=== PATIENT | male | born 1960 | race Hispanic/Latino ===

== ENCOUNTER → 2020-05-30 | Outpatient (CLI) | payer MEDICAID ==
[~2020-05-30] VITALS: Ht 180.3 cm; Wt 93.9 kg
[~2020-05-30] MED LIST: ALBUMIN (HUMAN) 25% 200 ML IV SCH
[2020-05-30 09:03] LABS: INR 1.27 (0.85-1.15); PARTIAL THROMBOPLASTIN TIME 31.3 SEC (26.3-35.5); PROTHROMBIN TIME 13.6 SEC (9.6-11.6)
--- NOTE | 2020-05-30 10:40 | NUR ---
U/S GUIDED PARACENTESIS PROCEDURE PERFORMED BY DR. GEE____. PUNCTURE SITE _RLQ___ AND PATIENT TOLERATED PROCEDURE WELL. TOTAL REMOVED _8.7__ LITERS OF THAO CLEAR COLOR ASCITES FLUID END OF PROCEDURE AT _1020_CATHETER REMOVED AND DRESSING APPLIED. NO BLEEDING NOTED. ALBUMIN 25% 50 GRAMS GIVEN IV PER ALBUMIN PROTOCOL. PIV DCD FROM LEFT FOREARM BANDAID APPLIED, NO BLEEDING NOTED. DISCHARGE INSTRUCTION GIVEN TO PATIENT AND VERBALIZED UNDERSTANDING. DISCHARGED VIA W/C . AAO X 3 WITH NO C/O PAIN.
[2020-05-30 13:04] LABS: APPEARANCE BODY FLUID CLEAR (CLEAR); COLOR,BODY FLUID YELLOW (LT YELLOW); SPECIMENTYPE,BODY FLUID ASCITES; TOTAL VOLUME,BODY FLUID 8700 mL
[2020-05-30 13:05] LABS: BODY FLUID RBC 1237 /cu. mm.; BODY FLUID WBC 120 /cu. mm.
[2020-05-30 13:58] LABS: BF LYMPHOCYTE 38 %; BF MESOTHELIAL 33 %; BF MONOCYTE 28 %
== END | disposition home or self-care (01) ==
LOC: RAH 08:18
PROVIDERS: ATTEND Internal Medicine Gastroenterology
DX: R18.8 Other ascites (principal); F41.9 Anxiety disorder, unspecified; D69.6 Thrombocytopenia, unspecified
CPT/HCPCS: 36415; 49083; 85610; 85730; 87071; 87205; 89051; 96365; A4215; P9046

== ENCOUNTER → 2020-11-16 | Outpatient (CLI) | payer MEDICAID ==
[2020-11-16 09:06] LABS: INR 1.18 (0.85-1.15); PROTHROMBIN TIME 12.4 SEC (9.6-11.6)
[2020-11-16 09:07] LABS: PARTIAL THROMBOPLASTIN TIME 32.8 SEC (26.3-35.5)
[2020-11-16 13:34] LABS: APPEARANCE BODY FLUID SLIGHTLY CLOUDY (CLEAR); COLOR,BODY FLUID YELLOW (LT YELLOW); SPECIMENTYPE,BODY FLUID ASCITES; TOTAL VOLUME,BODY FLUID 15000 mL
[2020-11-16 13:37] LABS: BODY FLUID RBC 975 /cu. mm.; BODY FLUID WBC 62 /cu. mm.
[2020-11-16 13:41] LABS: BF LYMPHOCYTE 48 %; BF MONOCYTE 40 %
== END | disposition home or self-care (01) ==
LOC: RAH 07:35
PROVIDERS: ATTEND Family Medicine
DX: K70.31 Alcoholic cirrhosis of liver with ascites (principal)
CPT/HCPCS: 36415; 49083; 85610; 85730; 87071; 87077; 87186; 87205; 89051; 96374; A4215; P9046; 96365

== ENCOUNTER → 2020-11-23 | Outpatient (CLI) | payer MEDICAID ==
[2020-11-23 13:32] LABS: SPECIMENTYPE,BODY FLUID ASCITES
[2020-11-23 13:33] LABS: APPEARANCE BODY FLUID CLOUDY (CLEAR); BODY FLUID RBC 4975 /cu. mm.; BODY FLUID WBC 58 /cu. mm.; COLOR,BODY FLUID YELLOW (LT YELLOW); TOTAL VOLUME,BODY FLUID 15800 mL
[2020-11-23 13:54] LABS: BF LYMPHOCYTE 15 %; BF MESOTHELIAL 48 %; BF MONOCYTE 4 %
== END | disposition home or self-care (01) ==
LOC: RAH 09:52
PROVIDERS: ATTEND Family Medicine
DX: K70.31 Alcoholic cirrhosis of liver with ascites (principal); F41.1 Generalized anxiety disorder; M17.0 Bilateral primary osteoarthritis of knee; M89.49 Other hypertrophic osteoarthropathy, multiple sites; E66.9 Obesity, unspecified; K40.91 Unilateral inguinal hernia, without obstruction or gangrene, recurrent; M62.838 Other muscle spasm; R60.0 Localized edema; K42.9 Umbilical hernia without obstruction or gangrene; F17.200 Nicotine dependence, unspecified, uncomplicated; Z98.890 Other specified postprocedural states; Z88.1 Allergy status to other antibiotic agents; Z88.8 Allergy status to other drugs, medicaments and biological substances; Z72.89 Other problems related to lifestyle; Z68.34 Body mass index [BMI] 34.0-34.9, adult
CPT/HCPCS: 49083; 87071; 87205; 89051; A4215; P9046; 96365

== ENCOUNTER → 2020-11-30 | Outpatient (CLI) | payer MEDICAID ==
[~2020-11-30] MED LIST changes: +ALBUMIN (HUMAN) 25% 100 ML IV SCH
[2020-11-30 09:50] LABS: BASOPHILS % (AUTO) 0.1 % (0.0-5.0); EOSINOPHILS % (AUTO) 0.2 % (0.0-8.0); HEMATOCRIT 29.4 % (42-54); LYMPHOCYTES % (AUTO) 4.7 % (21.0-51.0); MEAN CORPUSCULAR HEMOGLOBIN 26.2 pg (27.0-33.0); MEAN CORPUSCULAR HGB CONC 32.3 g/dL (32.0-36.0); MONOCYTES % (AUTO) 11.5 % (3.0-13.0); NEUTROPHILS % (AUTO) 81.8 % (40.0-77.0); PLATELET COUNT (AUTO) 86 K/uL (130-400); RED BLOOD CELL COUNT(AUTO) 3.63 MIL/uL (4.50-6.20); RED CELL DISTRIBUTION WIDTH 19.8 % (11.0-15.5); WHITE BLOOD COUNT (AUTO) 9.5 K/uL (4.8-10.8)
[2020-11-30 10:05] LABS: INR 1.26 (0.85-1.15); PROTHROMBIN TIME 13.4 SEC (9.6-11.6)
[2020-11-30 10:10] LABS: ALBUMIN 2.1 g/dL (3.5-5.0); BILIRUBIN,TOTAL 4.2 mg/dL (0.2-1.0); CREATININE 1.2 mg/dL (0.5-1.5); TOTAL PROTEIN, SERUM 7.2 g/dL (6.0-8.3)
[2020-11-30 15:49] LABS: ALBUMIN,BODY FLUID 0.2 g/dL
[2020-11-30 16:16] LABS: APPEARANCE BODY FLUID CLOUDY (CLEAR); COLOR,BODY FLUID DARK YELLOW (LT YELLOW); SPECIMENTYPE,BODY FLUID ASCITES
[2020-11-30 16:17] LABS: TOTAL VOLUME,BODY FLUID 15500 mL
[2020-11-30 16:18] LABS: BODY FLUID RBC 2575 /cu. mm.; BODY FLUID WBC 614 /cu. mm.
[2020-11-30 16:52] LABS: BF LYMPHOCYTE 16 %; BF MONOCYTE 3 %
== END | disposition home or self-care (01) ==
LOC: RAH 08:49
PROVIDERS: ATTEND Internal Medicine Gastroenterology
DX: K70.31 Alcoholic cirrhosis of liver with ascites (principal); F41.1 Generalized anxiety disorder; M17.0 Bilateral primary osteoarthritis of knee; M89.49 Other hypertrophic osteoarthropathy, multiple sites; E66.9 Obesity, unspecified; K40.91 Unilateral inguinal hernia, without obstruction or gangrene, recurrent; M62.838 Other muscle spasm; R60.0 Localized edema; K42.9 Umbilical hernia without obstruction or gangrene; F17.200 Nicotine dependence, unspecified, uncomplicated; Z98.890 Other specified postprocedural states; Z79.01 Long term (current) use of anticoagulants; Z88.1 Allergy status to other antibiotic agents; Z88.8 Allergy status to other drugs, medicaments and biological substances; Z72.89 Other problems related to lifestyle; Z68.34 Body mass index [BMI] 34.0-34.9, adult; Z79.899 Other long term (current) drug therapy
CPT/HCPCS: 36415; 49083; 76700; 80053; 82042; 84157; 85025; 85610; 87071; 87077; 87186; 87205; 88112; 88305; 89051; 93975; 96365; P9046

== ENCOUNTER 2020-12-02 22:25 | Inpatient (IN) | payer MEDICAID ==
[~2020-12-02] VITALS: Ht 180.3 cm; Wt 80.6 kg
[2020-12-02] MEDS ORDERED: ALBUTEROL INHALER 90MCG/INH IH ONE (22:37)
[2020-12-02] MEDS ORDERED: ONDANSETRON HCL 4 MG/2 ML VIAL ONE (22:37)
[2020-12-02 22:41] LABS: BASOPHILS % (AUTO) 0.3 % (0.0-5.0); EOSINOPHILS % (AUTO) 0.1 % (0.0-8.0); HEMATOCRIT 35.4 % (42-54); LYMPHOCYTES % (AUTO) 3.9 % (21.0-51.0); MEAN CORPUSCULAR HEMOGLOBIN 26.3 pg (27.0-33.0); MEAN CORPUSCULAR HGB CONC 33.3 g/dL (32.0-36.0); MEAN CORPUSCULAR VOLUME 78.8 fL (79-99); MONOCYTES % (AUTO) 7.6 % (3.0-13.0); PLATELET COUNT (AUTO) 168 K/uL (130-400); RED BLOOD CELL COUNT(AUTO) 4.49 MIL/uL (4.50-6.20); RED CELL DISTRIBUTION WIDTH 19.9 % (11.0-15.5)
[2020-12-02 22:56] LABS: CREATININE 2.9 mg/dL (0.5-1.5); POTASSIUM 3.8 mmol/L (3.5-5.1)
[2020-12-02 23:04] LABS: INR 1.4 (0.85-1.15); PROTHROMBIN TIME 14.8 SEC (9.6-11.6)
[2020-12-02 23:05] LABS: PARTIAL THROMBOPLASTIN TIME 36.9 SEC (26.3-35.5)
[2020-12-02 23:08] LABS: B-TYPE NATRIURETIC PEPTIDE 178 pg/mL (0-100)
[2020-12-02] MEDS ORDERED: FENTANYL CITRATE PF 50 MCG/1 ML 2ML VIAL ONE (23:08)
[2020-12-02 23:10] LABS: ALBUMIN 2.5 g/dL (3.5-5.0); BILIRUBIN,TOTAL 6.9 mg/dL (0.2-1.0); MAGNESIUM 2.8 mg/dL (1.80-2.40); TOTAL PROTEIN, SERUM 7.7 g/dL (6.0-8.3)
[2020-12-02] MEDS ORDERED: HYDROMORPHONE 1 MG/1 ML AMP ONE (23:40)
[2020-12-03] VITALS (8 sets, daily range): BP systolic 94–120; BP diastolic 35–68
[2020-12-03] MEDS ORDERED: FAMOTIDINE/PF 20 MG/2 ML VIAL IV ONE (00:09)
[2020-12-03] MEDS ORDERED: SODIUM CHLORIDE 0.9% 1000ML 1,000 ML IV ONE ×2 (00:11→03:15)
[2020-12-03] MEDS ORDERED: ONDANSETRON HCL 4 MG/2 ML VIAL IV PRN (00:30)
[2020-12-03] MEDS ORDERED: HYDROMORPHONE 1 MG/1 ML AMP IV PRN (00:30)
[2020-12-03] MEDS ORDERED: ZOLPIDEM TARTRATE 5 MG TAB PO PRN (00:30)
[2020-12-03] MEDS ORDERED: SODIUM CHLORIDE 0.9% 1000ML 1,000 ML IV SCH (00:30)
[2020-12-03] MEDS ORDERED: ACETAMINOPHEN 325 MG TAB PO PRN (00:30)
[2020-12-03] MEDS ORDERED: LACTULOSE 20 GM/30 ML UDCUP PO PRN (00:30)
[2020-12-03 01:00] LABS: APPEARANCE,URINE Turbid (CLEAR); BILIRUBIN,URINE Moderate (NEGATIVE); COLOR,URINE Dark Yellow (YELLOW); GLUCOSE, URINE (UA) Negative (NEGATIVE); KETONES,URINE Trace mg/dL (NEGATIVE); LEUKOCYTE ESTERASE ,URINE Small (NEGATIVE); NITRATE,URINE Negative (NEGATIVE); OCCULT BLOOD,URINE Large (NEGATIVE); PROTEIN,URINE POS 1+ mg/dL (NEGATIVE)
[2020-12-03 01:08] LABS: AMPHET/METH SCREEN,URINE NEGATIVE (NEGATIVE); BACTERIA,URINE Few /HPF (None Seen); BARBITURATE SCREEN, URINE NEGATIVE (NEGATIVE); BENZODIAZEPINES SCREEN,URINE NEGATIVE (NEGATIVE); CALCIUM OXALATE CRYSTALS,UR Moderate /LPF (None Seen); CANNABINOID SCREEN,URINE POSITIVE (NEGATIVE); COCAINE SCREEN,URINE NEGATIVE (NEGATIVE); MUCUS,URINE Many LPF (None Seen); OPIATE SCREEN,URINE POSITIVE (NEGATIVE); PHENCYCLIDINE SCREEN,URINE NEGATIVE (NEGATIVE); SQUAMOUS EPITHELIAL CELL,UR Moderate /HPF (0-2); WBC,URINE 0-1 /HPF (0-1)
[2020-12-03] MEDS ORDERED: HYDROMORPHONE HCL 0.5 MG/0.5 ML ML ONE (03:15)
[2020-12-03] MEDS ORDERED: KETOROLAC TROMETHAMINE 15MG/ML ONE (03:53)
[2020-12-03] MEDS ORDERED: PHARMACY COMMUNICATION MISC SCH ×3 (04:15→18:00)
[2020-12-03] MEDS ORDERED: VANCOMYCIN 1GM+NS 250ML 250 ML IV SCH (04:15)
[2020-12-03] MEDS ORDERED: VANCOMYCIN 1GM+NS 250ML 250 ML IV ONE (04:36)
[2020-12-03] MEDS ORDERED: VANCOMYCIN PROTOCOL PER PHARMACY IV SCH (06:30)
[2020-12-03] MEDS: INSULIN HUMULIN R 100 UNIT/ML 3ML SQ SCH ×4 (07:30→21:00)
[2020-12-03] MEDS ORDERED: DEXTROSE 50%-WATER 50 ML DISP.SYRIN IV ONE ×2 (07:51→18:16)
[2020-12-03] MEDS ORDERED: ONDANSETRON HCL 4 MG/2 ML VIAL ONE (07:56)
[2020-12-03] MEDS ORDERED: PANTOPRAZOLE SODIUM 40 MG TABLET.DR PO SCH (09:00)
[2020-12-03] MEDS ORDERED: FAMOTIDINE 20MG TAB 20 MG TAB PO SCH (09:00)
[2020-12-03] MEDS: M.V.I. IV [ADULT] 10 ML, FOLIC ACID 1 MG, THIAMINE HCL 100 MG in SODIUM CHLORIDE 0.9% 1... IV SCH (09:00)
[2020-12-03 09:14] LABS: HEMATOCRIT 38.3 % (42-54); MEAN CORPUSCULAR HEMOGLOBIN 25.7 pg (27.0-33.0); MEAN CORPUSCULAR HGB CONC 32.1 g/dL (32.0-36.0); MEAN CORPUSCULAR VOLUME 80.1 fL (79-99); RED BLOOD CELL COUNT(AUTO) 4.78 MIL/uL (4.50-6.20); RED CELL DISTRIBUTION WIDTH 20.1 % (11.0-15.5); WHITE BLOOD COUNT (AUTO) 15.5 K/uL (4.8-10.8)
[2020-12-03 09:57] LABS: POTASSIUM 3.8 mmol/L (3.5-5.1)
[2020-12-03] MEDS ORDERED: ALBUMIN (HUMAN) 5% 500 ML IV ONE ×2 (10:03→10:05)
[2020-12-03] MEDS ORDERED: SUCCINYLCHOLINE CHLORIDE 20 MG/ML 10 ML VIAL ONE (10:19)
[2020-12-03] MEDS ORDERED: ROCURONIUM 10MG/1ML SYR 10 MG/ML ML ONE ×2 (10:19→11:14)
[2020-12-03] MEDS ORDERED: KETAMINE 50MG/ML SYRINGE 50 MG/ML DISP.SYRIN IV ONE (10:19)
[2020-12-03] MEDS ORDERED: FENTANYL CITRATE PF 50 MCG/1 ML 2ML VIAL ONE (10:19)
[2020-12-03] MEDS ORDERED: NOREPINEPHRINE BITARTRATE 1 MG/1 ML ML IV ONE (10:21)
[2020-12-03] MEDS ORDERED: GLYCOPYRROLATE 1 MG/5 ML SYRINGE ONE (10:24)
[2020-12-03] MEDS ORDERED: MORPHINE SULFATE 4 MG/1ML SYG IV PRN (10:30)
[2020-12-03] MEDS: LEVOFLOXACIN 500 MG/D5W 100 ML 100 ML IV SCH (10:30)
[2020-12-03] MEDS: SODIUM CHLORIDE 0.9% 1000ML 1,000 ML IV SCH ×2 (10:30→23:50)
[2020-12-03] MEDS ORDERED: ONDANSETRON HCL 4 MG/2 ML VIAL IVP PRN (10:30)
[2020-12-03] MEDS ORDERED: NEOSTIGMINE 5MG/5ML SYR IV ONE (11:14)
[2020-12-03] MEDS ORDERED: SUGAMMADEX SODIUM 200 MG/2 ML VIAL IV ONE (11:37)
[2020-12-03 14:00] LABS: CHLORIDE,URINE RANDOM 49 mmol/L (110-250); POTASSIUM,URINE RANDOM 51 mmol/L (25-125); SODIUM,URINE RANDOM < 15 mmol/l (40-220)
[2020-12-03] MEDS: ALBUMIN (HUMAN) 25% 100 ML IV SCH ×2 (14:00→22:21)
[2020-12-03] MEDS ORDERED: ALBUMIN (HUMAN) 25% 100 ML IV ONE ×2 (15:55→17:30)
[2020-12-03] MEDS ORDERED: COMPOUND IV REFRIGERATED 1 EACH IVSOLN MISC PRN (17:15)
[2020-12-03] MEDS ORDERED: NOREPINEPHRINE 4MG/NS 250ML 250 ML IV ONE (17:31)
[2020-12-03] MEDS ORDERED: ALBUMIN (HUMAN) 5% 250 ML IV SCH (17:45)
[2020-12-03] MEDS ORDERED: SODIUM BICARB 50MEQ 50ML VIAL 100 ML ONE (17:52)
[2020-12-03] MEDS ORDERED: SODIUM BICARB 50MEQ 50ML VIAL IV SCH (18:00)
[2020-12-03] MEDS ORDERED: SODIUM BICARB 8.4% 50ML SYRING 150 MEQ in DEXTROSE 5%-WATER 1,000 ML IVP SCH (18:00)
[2020-12-03] MEDS ORDERED: SODIUM CHLORIDE 0.9% 500ML 500 ML IV SCH (18:00)
[2020-12-03] MEDS: DEXTROSE 50%-WATER 50 ML DISP.SYRIN IV SCH ×2 (18:30→19:30)
[2020-12-03] MEDS: FAMOTIDINE/PF 20 MG/2 ML VIAL IV SCH (21:51)
[2020-12-04] VITALS (24 sets, daily range): BP systolic 90–122; BP diastolic 37–78
[2020-12-04] MEDS ORDERED: DEXTROSE 50%-WATER 50 ML DISP.SYRIN IV ONE (06:09)
[2020-12-04] MEDS: ALBUMIN (HUMAN) 25% 100 ML IV SCH ×3 (06:37→21:01)
[2020-12-04 07:05] LABS: ALBUMIN 2.3 g/dL (3.5-5.0); BILIRUBIN,TOTAL 5.6 mg/dL (0.2-1.0); CREATININE 3.8 mg/dL (0.5-1.5); POTASSIUM 4.6 mmol/L (3.5-5.1); THYROID STIMULATING HORMONE 2.59 uIU/mL (0.36-3.74); TOTAL PROTEIN, SERUM 4.7 g/dL (6.0-8.3)
[2020-12-04] MEDS: INSULIN HUMULIN R 100 UNIT/ML 3ML SQ SCH ×4 (07:09→20:53)
[2020-12-04] MEDS ORDERED: DEXTROSE 50%-WATER 50 ML DISP.SYRIN IV PRN (07:15)
[2020-12-04] MEDS ORDERED: DEXTROSE 10%-WATER 1,000 ML IV SCH (07:15)
[2020-12-04 07:38] LABS: BASOPHILS % (AUTO) 0.1 % (0.0-5.0); EOSINOPHILS % (AUTO) 3.8 % (0.0-8.0); HEMATOCRIT 22.6 % (42-54); LYMPHOCYTES % (AUTO) 4.9 % (21.0-51.0); MEAN CORPUSCULAR HEMOGLOBIN 26.3 pg (27.0-33.0); MEAN CORPUSCULAR HGB CONC 32.3 g/dL (32.0-36.0); MEAN CORPUSCULAR VOLUME 81.3 fL (79-99); NEUTROPHILS % (AUTO) 84.4 % (40.0-77.0); PLATELET COUNT (AUTO) 37 K/uL (130-400); RED BLOOD CELL COUNT(AUTO) 2.78 MIL/uL (4.50-6.20); RED CELL DISTRIBUTION WIDTH 20.2 % (11.0-15.5); WHITE BLOOD COUNT (AUTO) 7.3 K/uL (4.8-10.8)
[2020-12-04] MEDS ORDERED: NOREPINEPHRINE 4MG/NS 250ML 250 ML IV SCH (08:15)
[2020-12-04] MEDS: M.V.I. IV [ADULT] 10 ML, FOLIC ACID 1 MG, THIAMINE HCL 100 MG in SODIUM CHLORIDE 0.9% 1... IV SCH (09:00)
[2020-12-04] MEDS: LEVOFLOXACIN 500 MG/D5W 100 ML 100 ML IV SCH (10:05)
[2020-12-04] MEDS: VANCOMYCIN 1.25 GM in SODIUM CHLORIDE 0.9% 250 ML IV SCH (10:15)
[2020-12-04] MEDS: FAMOTIDINE/PF 20 MG/2 ML VIAL IV SCH ×2 (10:18→20:56)
[2020-12-04] MEDS: THIAMINE HCL 100 MG/ML 2ML VIAL IVP SCH (10:19)
[2020-12-04] MEDS ORDERED: SODIUM BICARB 50MEQ 50ML VIAL IV ONE (15:00)
[2020-12-04] MEDS ORDERED: SODIUM BICARB 8.4% 50ML SYRING 150 MEQ in DEXTROSE 5%-WATER 1,000 ML IVP SCH (15:00)
[2020-12-04] MEDS: OCTREOTIDE ACETATE 100 MCG/ML AMP SQ SCH (20:57)
[2020-12-05] VITALS (24 sets, daily range): BP systolic 80–153; BP diastolic 38–88
[2020-12-05 05:47] LABS: BASOPHILS % (AUTO) 0.1 % (0.0-5.0); LYMPHOCYTES % (AUTO) 4.3 % (21.0-51.0); MEAN CORPUSCULAR HEMOGLOBIN 25.6 pg (27.0-33.0); MEAN CORPUSCULAR HGB CONC 32.4 g/dL (32.0-36.0); MONOCYTES % (AUTO) 7.7 % (3.0-13.0); NEUTROPHILS % (AUTO) 86.7 % (40.0-77.0); PLATELET COUNT (AUTO) 34 K/uL (130-400); RED BLOOD CELL COUNT(AUTO) 2.62 MIL/uL (4.50-6.20); RED CELL DISTRIBUTION WIDTH 20.7 % (11.0-15.5); WHITE BLOOD COUNT (AUTO) 8.5 K/uL (4.8-10.8)
[2020-12-05 06:03] LABS: MAGNESIUM 1.8 mg/dL (1.80-2.40); PHOSPHORUS 6.8 mg/dL (2.5-4.9); POTASSIUM 4.6 mmol/L (3.5-5.1)
[2020-12-05 06:12] LABS: HEMATOCRIT 20.7 % (42-54)
[2020-12-05] MEDS: ALBUMIN (HUMAN) 25% 100 ML IV SCH ×2 (06:22→14:39)
[2020-12-05] MEDS: INSULIN HUMULIN R 100 UNIT/ML 3ML SQ SCH ×4 (06:23→21:00)
[2020-12-05] MEDS: FAMOTIDINE/PF 20 MG/2 ML VIAL IV SCH ×2 (10:09→22:03)
[2020-12-05] MEDS: OCTREOTIDE ACETATE 100 MCG/ML AMP SQ SCH ×2 (10:10→22:03)
[2020-12-05] MEDS: THIAMINE HCL 100 MG/ML 2ML VIAL IVP SCH (10:10)
[2020-12-05] MEDS: LEVOFLOXACIN 500 MG/D5W 100 ML 100 ML IV SCH (10:10)
[2020-12-05] MEDS: VANCOMYCIN 1.25 GM in SODIUM CHLORIDE 0.9% 250 ML IV SCH (10:11)
[2020-12-05] MEDS: M.V.I. IV [ADULT] 10 ML, FOLIC ACID 1 MG, THIAMINE HCL 100 MG in SODIUM CHLORIDE 0.9% 1... IV SCH (11:15)
[2020-12-06] VITALS (25 sets, daily range): BP systolic 106–154; BP diastolic 45–75
[2020-12-06] MEDS ORDERED: ADENOSINE 3 MG/ML 2ML VIAL IV ONE (03:21)
[2020-12-06 04:50] LABS: BASOPHILS % (AUTO) 0.3 % (0.0-5.0); EOSINOPHILS % (AUTO) 0.1 % (0.0-8.0); HEMATOCRIT 23.5 % (42-54); LYMPHOCYTES % (AUTO) 3.4 % (21.0-51.0); MEAN CORPUSCULAR HEMOGLOBIN 26.4 pg (27.0-33.0); MEAN CORPUSCULAR HGB CONC 33.2 g/dL (32.0-36.0); MEAN CORPUSCULAR VOLUME 79.7 fL (79-99); MONOCYTES % (AUTO) 9.4 % (3.0-13.0); NUCLEATED RED BLOOD CELLS 0.2 % (0.0-0.19); PLATELET COUNT (AUTO) 25 K/uL (130-400); RED BLOOD CELL COUNT(AUTO) 2.95 MIL/uL (4.50-6.20); RED CELL DISTRIBUTION WIDTH 19.9 % (11.0-15.5); WHITE BLOOD COUNT (AUTO) 9.5 K/uL (4.8-10.8)
[2020-12-06 05:08] LABS: ALBUMIN 2.9 g/dL (3.5-5.0); BILIRUBIN,TOTAL 7.8 mg/dL (0.2-1.0); CREATININE 3.6 mg/dL (0.5-1.5); TOTAL PROTEIN, SERUM 5.3 g/dL (6.0-8.3)
[2020-12-06] MEDS: INSULIN HUMULIN R 100 UNIT/ML 3ML SQ SCH ×4 (06:31→21:00)
[2020-12-06] MEDS ORDERED: PHARMACY COMMUNICATION MISC PRN (07:15)
[2020-12-06] MEDS ORDERED: ONDANSETRON HCL 4 MG/2 ML VIAL IV PRN (07:15)
[2020-12-06] MEDS: LORAZEPAM 2 MG/ML 1 ML VIAL IVP PRN ×3 (07:41→22:48)
[2020-12-06] MEDS: THIAMINE HCL 100 MG/ML 2ML VIAL IVP SCH ×2 (09:13→20:18)
[2020-12-06] MEDS: FAMOTIDINE/PF 20 MG/2 ML VIAL IV SCH ×2 (09:13→20:19)
[2020-12-06] MEDS: VANCOMYCIN 1.25 GM in SODIUM CHLORIDE 0.9% 250 ML IV SCH (09:14)
[2020-12-06] MEDS: OCTREOTIDE ACETATE 100 MCG/ML AMP SQ SCH ×2 (09:14→20:20)
[2020-12-06] MEDS: LEVOFLOXACIN 500 MG/D5W 100 ML 100 ML IV SCH (09:15)
[2020-12-06] MEDS: M.V.I. IV [ADULT] 10 ML, FOLIC ACID 1 MG, THIAMINE HCL 100 MG in SODIUM CHLORIDE 0.9% 1... IV SCH (10:21)
[2020-12-06] MEDS: DEXTROSE 5 %-0.45 % NACL 1,000 ML IV SCH (17:52)
[2020-12-07] VITALS (24 sets, daily range): BP systolic 83–160; BP diastolic 49–90
[2020-12-07 05:22] LABS: BASOPHILS % (AUTO) 0.2 % (0.0-5.0); EOSINOPHILS % (AUTO) 0.1 % (0.0-8.0); LYMPHOCYTES % (AUTO) 4.1 % (21.0-51.0); MEAN CORPUSCULAR HEMOGLOBIN 26.5 pg (27.0-33.0); MEAN CORPUSCULAR HGB CONC 32.9 g/dL (32.0-36.0); MEAN CORPUSCULAR VOLUME 80.5 fL (79-99); MONOCYTES % (AUTO) 9.3 % (3.0-13.0); NEUTROPHILS % (AUTO) 85.2 % (40.0-77.0); PLATELET COUNT (AUTO) 23 K/uL (130-400); RED BLOOD CELL COUNT(AUTO) 2.98 MIL/uL (4.50-6.20); RED CELL DISTRIBUTION WIDTH 20.3 % (11.0-15.5); WHITE BLOOD COUNT (AUTO) 10.4 K/uL (4.8-10.8)
[2020-12-07] MEDS: INSULIN HUMULIN R 100 UNIT/ML 3ML SQ SCH ×4 (05:34→16:30)
[2020-12-07 05:37] LABS: CREATININE 3.3 mg/dL (0.5-1.5); POTASSIUM 3.8 mmol/L (3.5-5.1)
[2020-12-07 06:01] LABS: % IRON SATURATION 17.9 % (30-44)
[2020-12-07] MEDS: FAMOTIDINE/PF 20 MG/2 ML VIAL IV SCH ×2 (09:05→22:01)
[2020-12-07] MEDS: DEXTROSE 5 %-0.45 % NACL 1,000 ML IV SCH (09:07)
[2020-12-07] MEDS: LEVOFLOXACIN 500 MG/D5W 100 ML 100 ML IV SCH (09:07)
[2020-12-07] MEDS: THIAMINE HCL 100 MG/ML 2ML VIAL IVP SCH ×2 (09:07→22:05)
[2020-12-07] MEDS: M.V.I. IV [ADULT] 10 ML, FOLIC ACID 1 MG, THIAMINE HCL 100 MG in SODIUM CHLORIDE 0.9% 1... IV SCH (11:17)
[2020-12-07] MEDS ORDERED: DIAZEPAM 5 MG TABLET PO PRN (14:00)
[2020-12-07 14:54] LABS: ALBUMIN 2.4 g/dL (3.5-5.0); BILIRUBIN,TOTAL 10.8 mg/dL (0.2-1.0); CREATININE 3.3 mg/dL (0.5-1.5)
[2020-12-07] MEDS: LORAZEPAM 2 MG/ML 1 ML VIAL IVP PRN (15:39)
[2020-12-07] MEDS ORDERED: COMPOUND IV MISC 1 EACH IVSOLN MISC PRN (17:00)
[2020-12-07] MEDS: OCTREOTIDE ACETATE 100 MCG/ML AMP SQ SCH ×2 (18:38→22:03)
[2020-12-07] MEDS ORDERED: SODIUM CHLORIDE 0.9% 100 ML IV ONE (22:01)
[2020-12-08] VITALS (17 sets, daily range): BP systolic 90–145; BP diastolic 50–107
[2020-12-08] MEDS: LORAZEPAM 2 MG/ML 1 ML VIAL IVP PRN ×3 (01:17→21:49)
[2020-12-08 03:53] LABS: BASOPHILS % (AUTO) 0.1 % (0.0-5.0); EOSINOPHILS % (AUTO) 0.4 % (0.0-8.0); HEMATOCRIT 23.7 % (42-54); LYMPHOCYTES % (AUTO) 4.8 % (21.0-51.0); MEAN CORPUSCULAR HEMOGLOBIN 26.5 pg (27.0-33.0); MEAN CORPUSCULAR HGB CONC 32.9 g/dL (32.0-36.0); MEAN CORPUSCULAR VOLUME 80.6 fL (79-99); NEUTROPHILS % (AUTO) 81.5 % (40.0-77.0); NUCLEATED RED BLOOD CELLS 0.2 % (0.0-0.19); PLATELET COUNT (AUTO) 21 K/uL (130-400); RED BLOOD CELL COUNT(AUTO) 2.94 MIL/uL (4.50-6.20); RED CELL DISTRIBUTION WIDTH 20.5 % (11.0-15.5); WHITE BLOOD COUNT (AUTO) 9.7 K/uL (4.8-10.8)
[2020-12-08 04:08] LABS: INR 2.14 (0.85-1.15); PROTHROMBIN TIME 21.8 SEC (9.6-11.6)
[2020-12-08 04:10] LABS: CREATININE 3.1 mg/dL (0.5-1.5); PHOSPHORUS 4.5 mg/dL (2.5-4.9); POTASSIUM 3.8 mmol/L (3.5-5.1)
[2020-12-08] MEDS ORDERED: LACTULOSE 20 GM/30 ML UDCUP PO SCH (05:00)
[2020-12-08 06:33] LABS: ABG BASE EXCESS 0.3 mmol/L (-2.0-3.0); ABG HCO3 23.2 mmol/L (21.0-28.0); ABG OXYGEN SATURATION 96.4 % (95.0-99.0); ABG PCO2 33 mmHg (35-48)
[2020-12-08] MEDS: DEXTROSE 5 %-0.45 % NACL 1,000 ML IV SCH (06:45)
[2020-12-08] MEDS: INSULIN HUMULIN R 100 UNIT/ML 3ML SQ SCH ×3 (07:30→16:00)
[2020-12-08] MEDS ORDERED: IRON SUCROSE COMPLEX 300 MG in SODIUM CHLORIDE 0.9% 250 ML IV SCH (09:00)
[2020-12-08] MEDS: LEVOFLOXACIN 500 MG/D5W 100 ML 100 ML IV SCH (09:29)
[2020-12-08] MEDS: FAMOTIDINE/PF 20 MG/2 ML VIAL IV SCH (09:29)
[2020-12-08] MEDS: THIAMINE HCL 100 MG/ML 2ML VIAL IVP SCH (09:29)
[2020-12-08] MEDS: OCTREOTIDE ACETATE 100 MCG/ML AMP SQ SCH (09:34)
[2020-12-08] MEDS: LACTULOSE 20 GM/30 ML UDCUP PO SCH ×2 (10:08→14:00)
[2020-12-08] MEDS: M.V.I. IV [ADULT] 10 ML, FOLIC ACID 1 MG, THIAMINE HCL 100 MG in SODIUM CHLORIDE 0.9% 1... IV SCH (10:09)
[2020-12-08] MEDS ORDERED: MORPHINE SULFATE 2 MG/ML 1ML SYG IVP PRN (18:00)
[2020-12-08] MEDS: MORPHINE SULFATE 2 MG/ML 1ML SYG IVP PRN (23:19)
[2020-12-09] MEDS: MORPHINE SULFATE 2 MG/ML 1ML SYG IVP PRN (13:11)
[2020-12-09] MEDS: LORAZEPAM 2 MG/ML 1 ML VIAL IVP PRN ×2 (17:11→21:29)
[2020-12-09 19:54] VITALS: BP 134/60
[2020-12-10 00:24] VITALS: BP 131/75
[2020-12-10 03:44] VITALS: BP 140/71
[2020-12-10 08:00] VITALS: BP 138/69
[2020-12-10 12:00] VITALS: BP 142/61
[2020-12-10 16:00] VITALS: BP 135/67
[2020-12-10 20:00] VITALS: BP 103/50
[2020-12-11] VITALS: BP 95/56
[2020-12-11 04:00] VITALS: BP 70/40
== END 2020-12-11 06:02 | disposition expired | DRG 710 ==
LOC: EDH 22:25 → INTOOBSV 22:26 → UNDOADMOB 22:26 → OBSVTOIN 22:26 → EDHIP 22:26 → 2DH 12-03 12:08 → 4CH 12-08 18:37
PROVIDERS: ADMIT Internal Medicine; ATTEND Internal Medicine
PROC: 0W9G3ZZ Drainage of Peritoneal Cavity, Percutaneous Approach (ICD-10-PCS; 2020-12-03)
PROC: 0WQF0ZZ Repair Abdominal Wall, Open Approach (ICD-10-PCS; 2020-12-03)
PROC: 02HV33Z Insertion of Infusion Device into Superior Vena Cava, Percutaneous Approach (ICD-10-PCS; 2020-12-03)
PROC: 30233R1 Transfusion of Nonautologous Platelets into Peripheral Vein, Percutaneous Approach (ICD-10-PCS; principal; 2020-12-03 10:45)
PROC: 02HV33Z Insertion of Infusion Device into Superior Vena Cava, Percutaneous Approach (ICD-10-PCS; 2020-12-03 10:45)
PROC: 30233N1 Transfusion of Nonautologous Red Blood Cells into Peripheral Vein, Percutaneous Approach (ICD-10-PCS; 2020-12-05)
DX: A41.9 Sepsis, unspecified organism (principal); K70.31 Alcoholic cirrhosis of liver with ascites; K85.10 Biliary acute pancreatitis without necrosis or infection; K43.0 Incisional hernia with obstruction, without gangrene; K55.9 Vascular disorder of intestine, unspecified; E87.1 Hypo-osmolality and hyponatremia; N18.4 Chronic kidney disease, stage 4 (severe); I12.9 Hypertensive chronic kidney disease with stage 1 through stage 4 chronic kidney disease, or unspecified chronic kidney disease; N39.0 Urinary tract infection, site not specified; K76.6 Portal hypertension; K42.9 Umbilical hernia without obstruction or gangrene; K63.89 Other specified diseases of intestine; K72.90 Hepatic failure, unspecified without coma; D50.9 Iron deficiency anemia, unspecified; D69.6 Thrombocytopenia, unspecified; E43 Unspecified severe protein-calorie malnutrition; F10.231 Alcohol dependence with withdrawal delirium; F12.90 Cannabis use, unspecified, uncomplicated; N17.9 Acute kidney failure, unspecified; F14.90 Cocaine use, unspecified, uncomplicated; K76.7 Hepatorenal syndrome; R62.7 Adult failure to thrive; R65.21 Severe sepsis with septic shock; Z20.822 Contact with and (suspected) exposure to COVID-19; Z51.5 Encounter for palliative care; Z66 Do not resuscitate; R68.0 Hypothermia, not associated with low environmental temperature; Z74.01 Bed confinement status; Z68.24 Body mass index [BMI] 24.0-24.9, adult; Z88.0 Allergy status to penicillin; Z87.891 Personal history of nicotine dependence; Z83.3 Family history of diabetes mellitus; Z82.49 Family history of ischemic heart disease and other diseases of the circulatory system
CPT/HCPCS: 36415; 36430; 36569; 36600; 49083; 71045; 74176; 76700; 80048; 80051; 80053; 80305; 81001; 82042; 82140; 82550; 82728; 82803; 82948; 83540; 83550; 83605; 83690; 83735; 83880; 83935; 84100; 84145; 84157; 84443; 84484; 84550; 85025; 85027; 85610; 85730; 86850; 86900; 86901; 86923; 86927; 87040; 87071; 87077; 87088; 87186; 87205; 87426; 89051; 93005; 93975; 96365; C1751; C1894; G0378; J0153; J0330; J1170; J1756; J1885; J1956; J2060; J2354; J2405; J2710; J3010; J3370; J3411; J3490; J7030; J7042; J7050; J7070; P9016; P9017; P9045; P9046; U0003